=== PATIENT | female | born 1990 | race Caucasian/White ===

== ENCOUNTER → 2016-09-27 | Outpatient (CLI) | payer BC ==
--- NOTE | 2016-09-27 17:05 | DI ---
XR FOOT COMPLETE MIN 3VW WB,09/27/2016 3:28 PM: Clinical History: Left foot pain Previous Exam: June 21, 2016 Findings: 3 views of the left foot are obtained, and demonstrate anatomic alignment without fractures. There is soft tissue swelling over the dorsum of the foot. Impression: Soft tissue swelling otherwise unremarkable.
== END ==
LOC: RAD 15:34
PROVIDERS: ATTEND Podiatrist Foot & Ankle Surgery
DX: M79.672 Pain in left foot (principal); M79.89 Other specified soft tissue disorders
CPT/HCPCS: 73630

== ENCOUNTER → 2016-10-11 | Outpatient (CLI) | payer BC ==
[2016-10-13 15:20] LABS: ALK PHOS ISOENYZ: LIVER 2 % 5.1 % (0.0-8.0); ALK PHOS ISOENYZ: LIVER1 % 23.5 % (27.8-76.3); ALK PHOS ISOENYZMES: BONE% 71.4 % (19.1-67.7); ALK PHOS ISOENZYME: BONE 101.4 IU/L (12.1-42.7); ALK PHOS ISOENZYME: LIVER 1 33.4 IU/L (16.2-70.2); ALK PHOS ISOENZYME: LIVER 2 7.2 IU/L (0.0-5.8)
[2016-10-13 17:52] LABS: ALK PHOS ISOENYZME: PLACENTAL NotPresent (())
== END ==
LOC: LAB 16:01
PROVIDERS: ATTEND Family Medicine
DX: R74.8 Abnormal levels of other serum enzymes (principal)
CPT/HCPCS: 36415; 84075; 84080

== ENCOUNTER → 2016-10-26 | Outpatient (CLI) | payer BC ==
--- NOTE | 2016-10-29 04:24 | DI ---
LEFT FOOT, 10/26/2016 3:50 PM: Clinical History: Pain in the left sesamoid bone. Previous Exam: 09/27/2016. 3 weightbearing views are submitted. There is no acute soft tissue, osseous, or joint abnormality. Reading: Normal left foot exam.
== END ==
LOC: MOB RAD 16:51
PROVIDERS: ATTEND Podiatrist Foot & Ankle Surgery
DX: M79.672 Pain in left foot (principal)
CPT/HCPCS: 73630

== ENCOUNTER → 2016-10-31 | Outpatient (CLI) | payer BC ==
--- NOTE | 2016-10-31 16:38 | DI ---
MRI LOW EXTREMITY W/O CN,10/31/2016 2:55 PM: Clinical History: Sesamoid pain. Previous Exam: None at this facility. Findings: Multiplanar MR images are obtained through the left foot without contrast. Bony alignment is anatomic. No fractures are seen. There is some mild edema involving the distal cubo id. The sesamoid bone appears grossly normal. The flexor and extensor tendons are intact. Signal within the musculature is unremarkable. There are mild degenerative changes involving the right first metatarsophalangeal joint. There is a very small joint effusion involving the first metatarsophalangeal joint. Impression: 1. No evidence of edema of the sesamoid bones. 2. Trace amount of fluid within the left first metatarsophalangeal joint.
== END ==
LOC: MRI 14:50
PROVIDERS: ATTEND Podiatrist Foot & Ankle Surgery
DX: M79.672 Pain in left foot (principal)
CPT/HCPCS: 73718

== ENCOUNTER → 2016-11-13 | Outpatient (CLI) | payer BC ==
--- NOTE | 2016-11-13 22:12 | DI ---
CT BONE DENSITOMETRY OF THE SPINE AND HIP, 11/13/2016 3:51 PM : Clinical History: Mathew-Danlos syndrome Previous Exam: None at this facility. 3D Quantitative CT (QCT) Bone Mineral Densitometry: The [place] scans are normal. Low dose scans are obtained of the lumbar spine and sampling is obtaine d through the midbodies of L1 and L2. The average volumetric bone mineral density (BMD) of the lumbar spine is 171 mg/cm3. This value corresponds to a volumetric T-score of 0.11 and Z-score of 0.0 as as sessed by this BMD software. Volumetric 3D QCT and areal DEXA T-scores and Z-scores are not directly equivalent. Using the [employer]'s (ACR) volumetric QCT trabecular spine BMD conve rsion table that is closely equivalent to the areal WHO diagnostic categories, this patient falls int o the category of normal bone mineral density. CT X-Ray Absorptiometry (CTXA) Hip Bone Mineral Densitometry: Low dose scans are obtained through the hips for assessment of bone mineral density (BMD) and T-score s and Z-scores of the left hip. Total hip BMD: 0.653 mg/cm2 T-score: -2.3 Z-score: Femoral neck BMD: 0.762 mg/cm2 T-score: -0.3 Z-score: Note: T-scores of the spine and hip exhibit discordant readings approximately 40% of the time in eval uated patients. Changes in BMD determined either by volumetric QCT or areal DEXA are more reliable in assessment of change in a patient's BMD status rather than changes in T-scores. The CTXA hip CT bone mineral density measurements and the resultant T-scores and Z-scores are exact hip DEXA scan equival ents. The femoral neck T-score can be used in the WHO's FRAX program for assessing an untreated patie nt's 10 year fracture risk. READIN. Normal bone mineral density of the spine and femoral neck with osteopenia of the left total hip
== END ==
LOC: US 15:35
PROVIDERS: ATTEND Nurse Practitioner Family
DX: Q79.6 Ehlers-Danlos syndromes (principal); E66.9 Obesity, unspecified
CPT/HCPCS: 77078; 93306

== ENCOUNTER 2016-12-22 05:44 | Day surgery (SDC) | payer BC ==
[2016-12-22] MEDS ORDERED: LIDOCAINE W/ SODIUM BICARB 0.5 ML SYR ONE (05:55)
[2016-12-22] MEDS ORDERED: ceFAZolin Inj 2gm (Premix) 50 ML IV ONE (05:55)
[2016-12-22] MEDS ORDERED: Lactated Ringers 1,000 ML PRIMARY IV ONE (05:55)
[2016-12-22 06:21] LABS: URINE SPECIFIC GRAVITY - MAN 1.018
[2016-12-22] MEDS ORDERED: MIDAZOLAM 5 MG/1 ML ONE (07:03)
[2016-12-22] MEDS ORDERED: fentaNYL Inj 100 MCG/2 ML VIAL ONE (07:04)
[2016-12-22] MEDS ORDERED: ROPIVACAINE HCL 7.5 MG/1 ML - 20 ML ONE (07:07)
[2016-12-22] MEDS ORDERED: LIDOCAINE 2%/ EPI 1:200,000 - 20 ML VIAL ONE (07:08)
[2016-12-22] MEDS ORDERED: DEXAMETHASONE PF 10 MG/1 ML VIAL ONE (07:08)
[2016-12-22 07:26] VITALS: RESP 14
[2016-12-22] MEDS ORDERED: KETAMINE 100 MG/1 ML - 5 ML ONE (07:50)
[2016-12-22] MEDS ORDERED: BUPivacaine Inj 0.5% PF (5mg/ml) 10ml vial ONE (08:04)
[2016-12-22] MEDS ORDERED: BUPivacaine Liposome/PF (Exparel) Inj 20ml vial INFIL ONE ×2 (08:43→08:53)
--- NOTE | 2016-12-22 09:07 | CRNA.PROCE ---
Nerve Block Documentation - - Safety Measures: Time Out Taken, Site Verified - - Type of Nerve Block Used: Left Popliteal Fossa Block (Primary anesthetic for Podiatric procedure.) Position for Nerve Block: Prone Moniters Used During Block: EKG, SPO2, NIBP Oxygen Sumpplented: Yes Sedation Used - Enter Amount in Comment Field: Midazolam (mg): Yes (3 plus 2), Fentanyl (mcg): Yes (50) Skin Prep Used: ChloroPrep (Twice) Draped: No Technique: Nerve Stimulator Nerve Block Needle Used: 80 mm ProBlk II Stimulation Hz: 1 Stimulation Staring mA: 1.8 Stimulation Ending mA: 0.48 Local Anesthetic - Enter Amt in Comment Field: 2 % Xylocaine with Epinephrine 1: 200,000 (mL): Yes (10 ml in 3 ml increments), Other Anesthetic: Yes (0.75%-20 ml in 3 ml increments) Additives to Nerve Blocks: Dexamethasone (mL): Yes (10 )
[2016-12-22] MEDS ORDERED: NORMAL SALINE 10 ML SYRINGE FLUSH IVP PRN (09:26)
--- NOTE | 2016-12-22 09:53 | GEN.OPNOTE ---
Operative Report Surgeon: Antoine Martins DPM Anesthesia Type: Regional (Left popliteal block), Local (With postoperative express), MAC Anesthesia Provider: Thelma Copeland CRNA Surgery Date: 12/22/16 Preoperative Diagnosis: 1. Left foot pain. 2. Left foot tibial sesamoiditis. Postoperative Diagnosis: 1. Left foot pain. 2. Left foot tibial sesamoiditis. 3. 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 Procedure: 1. Excision of left foot neuroma, plantar medial the first MTPJ. 2. Left foot tibial sesamoid excision. Estimated Blood Loss (mL): 5 (a pneumatic cuff was used about the left ankle at 250 mmHg pressure for a total time of 68 minutes.) Fluids: 2 g of Ancef given preoperatively. 1400 mL's lactated Ringer's. Complications: None Findings at Surgery: Of special note there was a large plantar medial neuroma that was scarred to the joint capsule / tibial sesamoid of the left foot. A client services representative sample was submitted to pathology. Indications for the Procedure: Ongoing chronic left foot pain of the tibial sesamoid. Description of Procedure: The patient was brought to the operating room and placed in the supine position. They had already been given a popliteal block of the lower extremity , and MAC was continued. The foot was prepped and draped in the usual sterile fashion. A timeout was performed. A preoperative C-arm radiograph was taken at different angles to help delineate the area of concern, and this was marked on the foot. The foot was then exsanguinated with an elastic Esmarch, after which a pneumatic cuff was inflated about the left ankle to 250 mmHg pressure. A curvilinear incision was made plantar medial to the left first metatarsophalangeal joint. This was carried deep by sharp and blunt dissection. A Bovie was used as needed. As dissection was carried through the subcutaneous tissue, a large neuroma was noted to be scarred or adhered to the plantar medial joint capsule over the tibial sesamoid. This was dissected out of the joint capsule and a client services representative sample was submitted to pathology. The nerve was cut back and tucked into the flexor hallucis brevis muscle belly. An approximate 2.5 cm portion of the nerve was removed. Next a linear incision was made over the plantar medial or tibial sesamoid fibers. These were then dissected away from the bony sesamoid taking care to her maintain all the longitudinal fibers as possible. The sesamoid was freed and then removed with a bone rongeur to help from the interspace sesamoidal ligament. The wound was irrigated. The sesamoid itself did not have any abnormal appearance notwithstanding there could have been a microfracture. A sample of the sesamoid was submitted to pathology (because of it being removed by rongeur, the largest sample was sent). The wound was then irrigated. A postoperative x-ray was taken to make sure it was all removed. Exparel was injected into the subcutaneous tissues around the surgical site for postoperative analgesia. The tendon apparatus was repaired with 2-0 Vicryl taking care not to suture the flexor hallucis longus tendon. The subcutaneous tissues were closed with 4-0 Vicryl. The skin was closed with 4-0 nylon. The wound was reinforced with Mastisol and Steri-Strips. A dressing consisted of Xeroform, gauze, fluffs, Kerlix and three-inch Coban. Taking care to splint the toe in rectusHenry Chinchilla tolerated the procedure very well and was returned recovery.
[2016-12-22 11:24] VITALS: TEMP 97.7
--- NOTE | 2016-12-22 13:11 | DI ---
XR FOOT COMPLETE MIN 3VW,12/22/2016 9:26 AM: Clinical History: Sesamoiditis of the left foot. Previous Exam: October 26, 2016 Findings: 3 views of the left foot are obtained, and demonstrate anatomic alignment without fractures. There is some soft tissue swelling over the dorsum of the left foot. There is also a stress fracture involving the third metatarsal along the tibial surface. The sesamoid bones are unremarkable. Impression: Stress fracture of the left third mid metatarsal.
--- NOTE | 2016-12-25 11:46 | OPS CRUTCH ---
Diagnosis : Left Lower Extremity Surgery Referral Reason: Gait Training O: Patient was instructed in the use of walker with gait belt, both on level surfaces and up and down stairs stairs, non weight-bearing. P: No further therapy is indicated at this time. MTDD
== END 2016-12-22 11:00 | disposition home or self-care (01) ==
LOC: SDSC 05:44
PROVIDERS: ATTEND Podiatrist Foot & Ankle Surgery
DX: M25.475 Effusion, left foot (principal); Q79.6 Ehlers-Danlos syndromes; M25.872 Other specified joint disorders, left ankle and foot; G57.62 Lesion of plantar nerve, left lower limb
CPT/HCPCS: 28080; 28315; 73630; 76000; 84703; 97116; C9290; J0690; J2704; J3010; J1100; J2250; J3490; J7120